=== PATIENT | female | born 1990 | race Caucasian/White ===

== ENCOUNTER 2017-02-02 17:27 | Emergency (ER) | payer OTHER ==
[~2017-02-02] VITALS: Ht 165.1 cm; Wt 46.5 kg
[~2017-02-02 17:27] MED LIST: BACT800T5 PO; CEPH500C3 PO; FLUC200T63 PO; IBUP800T23 PO; PROM25TA5 PO; TRAZ150T75 PO; VALI10TA PO
[2017-02-02 17:39] VITALS: BP 138/89; PULSE 98; RESP 22; TEMP 98; O2SAT 98
--- NOTE | 2017-02-02 17:50 | PD ---
HPI Chief Complaint: Psychiatric Symptoms Time Seen by Provider: 17:40 Travel History International Travel<30 days: No Contact w/Intl Traveler<30days: No Traveled to known affect area: No History of Present Illness HPI The patient was seen and examined in the presence of the nurse. This patient presents under police Pratt act. According to the Pratt act form she had made some suicidal statements. Patient downplays that and at this time says she is not feeling suicidal. She denies alcohol or drug use today. She reports history of lupus and bipolar. She did not take her bipolar meds today but reports she took them yesterday. Severity is moderate. No alleviating factors. Duration one week PFSH Past Medical History Arthritis: No Anxiety: Yes Cancer: No Cardiovascular Problems: No Cerebrovascular Accident: No Diminished Hearing: No Endocrine: No Genitourinary: No Immune Disorder: No Musculoskeletal: No Neurologic: No Psychiatric: Yes Reproductive: No Respiratory: No Immunizations Current: Yes Migraines: Yes Seizures: No ?: Not LMP: 02/02/17 Past Surgical History Abdominal Surgery: No Section: Yes (X2) Ear Surgery: No Eye Surgery: No Genitourinary Surgery: No Gynecologic Surgery: Yes () Oral Surgery: Yes (WISDOM TEETH) Thoracic Surgery: No Other Surgery: Yes Social History Alcohol Use: No Tobacco Use: Yes Substance Use: Yes ([facility]) Allergies-Medications (Allergen,Severity, Reaction): Coded Allergies: Ultram (Verified Allergy, Severe, Hives, 02/02/17) TACHYCARDIA *MDRO Multi-Drug Resistant Organism (Verified Allergy, Unknown, 01/31/16) 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; MRSA (lip)- 2012 Reported Meds & Prescriptions Reported Meds & Active Scripts Active Reported Trazodone (Trazodone HCl) 150 Mg Tab 150 Mg PO HS Prednisone 20 Mg Tab 20 Mg PO DAILY Cyproheptadine (Cyproheptadine HCl) 4 Mg Tab 4 Mg PO BID Meloxicam 7.5 Mg Tab 7.5 Mg PO BID Lamotrigine 100 Mg Tab 100 Mg PO BID Duloxetine DR (Duloxetine HCl) 60 Mg Capdr 60 Mg PO DAILY Review of Systems General / Constitutional: No: Fever Eyes: No: Visual changes HENT: No: Headaches Cardiovascular: No: Chest Pain or Discomfort Respiratory: No: Shortness of Breath Gastrointestinal: No: Abdominal Pain Genitourinary: No: Dysuria Musculoskeletal: No: Pain Skin: No Rash Neurologic: No: Weakness Psychiatric: Positive: Depression, Suicidal Ideations, Disorder of Thought, Mood Disorder Endocrine: No: Polydipsia Hematologic/Lymphatic: No: Easy Bruising Physical Exam Narrative GENERAL: Well-nourished, well-developed patient in no apparent distress. SKIN: Focused skin assessment reveals no rash and nodules. Skin is Warm and dry. HEAD: Atraumatic. Normocephalic. EYES: Pupils equal and round. No scleral icterus. No injection or drainage. ENT: No nasal bleeding or discharge. Mucous membranes pink and moist. NECK: Trachea midline. No JVD. CARDIOVASCULAR: Regular rate and rhythm. No murmur appreciated. RESPIRATORY: No accessory muscle use. Clear to auscultation. Breath sounds equal bilaterally. GASTROINTESTINAL: Abdomen soft, non-tender, nondistended. Hepatic and splenic margins not palpable. MUSCULOSKELETAL: No obvious deformities. No clubbing. No cyanosis. No edema. NEUROLOGICAL: Awake and alert. No obvious cranial nerve deficits. Motor grossly within normal limits. Normal speech. PSYCHIATRIC: Depressed mood and flat affect; insight and judgment reduced . Data Data Last Documented VS Vital Signs Date Time Temp Pulse Resp B/P Pulse Ox O2 Delivery O2 Flow Rate FiO2 02/02/17 17:39 98.0 98 22 138/89 98 Orders Complete Blood Count With Diff (02/02/17 17:48) Basic Metabolic Panel (Bmp) (02/02/17 17:48) Ed Urine Pregnancytest Poc (02/02/17 17:48) Iv Access Insert/Monitor (02/02/17 17:48) Psych Screen (02/02/17 17:48) Drug Screen, Random Urine (02/02/17 17:48) Alcohol (Ethanol) (02/02/17 17:48) Ketorolac Inj (Toradol Inj) (02/02/17 18:45) MDM Medical Decision Making Medical Screen Exam Complete: Yes Emergency Medical Condition: Yes Medical Record Reviewed: Yes Differential Diagnosis Suicidal ideation, depression, adjustment disorder Narrative Course I have reviewed the patient's electronic medical record. IV placed I gave her 30 mg IV Toradol I ordered a medical clearance workup to include Gen. lab counts and alcohol and tox screen I don't expect any of these would change management expert. They will be reviewed prior to her being deemed medically clear. Disposition will be per psychiatry after screening. Diagnosis Primary Impression: Suicidal ideation Additional Impression: Bipolar 1 disorder Jameel Cevallos MD Feb 02, 2017 17:50
[2017-02-02] MEDS ORDERED: LAMO100T PO (17:54)
[2017-02-02] MEDS ORDERED: TRAZ150T75 PO (17:54)
[2017-02-02] MEDS ORDERED: MELO7.5T4 PO (17:54)
[2017-02-02] MEDS ORDERED: PRED20 PO (17:54)
[2017-02-02] MEDS ORDERED: DULO1CAP3 PO (17:54)
[2017-02-02] MEDS ORDERED: CYPR4TAB PO (17:54)
[2017-02-02] MEDS ORDERED: KETOROLAC TROMETHAMINE 30 MG/ML (IVP) VIAL IV PUSH ONE (18:45)
[2017-02-02 18:53] LABS: AMPHETAMINE, URINE NEG (NEG); BARBITURATES, URINE NEG (NEG); COCAINE, URINE NEG (NEG)
[2017-02-02 19:06] LABS: AUTOMATED NEUTROPHIL # 8.3 TH/MM3 (1.8-7.7); BASOPHIL % 0.4 % (0.0-2.0); EOSINOPHIL # 0.1 TH/MM3 (0-0.4); HEMATOCRIT 34.5 % (35.0-46.0); HEMO FLAGS DIFF FINAL; LYMPH % 25.1 % (9.0-44.0); MEAN CELL VOLUME 86.8 FL (80.0-100.0); MEAN CORPUSCULAR HEMOGLOBIN 29.6 PG (27.0-34.0); MONO % 4.5 % (0.0-8.0); PLATELET COUNT 342 TH/MM3 (150-450); RED BLOOD COUNT 3.97 MIL/MM3 (4.00-5.30); RED CELL DISTRIBUTION WIDTH 13.7 % (11.6-17.2)
[2017-02-02 19:07] LABS: ANION GAP 4 MEQ/L (5-15); BICARBONATE 29.3 MEQ/L (21.0-32.0); BLOOD UREA NITROGEN 16 MG/DL (7-18); CHLORIDE 109 MEQ/L (98-107); GLOMERULAR FILTRATION RATE 72 ML/MIN (>89); POTASSIUM 3.7 MEQ/L (3.5-5.1); SODIUM (NA) 142 MEQ/L (136-145)
[2017-02-02] MEDS ORDERED: predniSONE 20 MG TAB PO ONE (20:15)
[2017-02-02] MEDS ORDERED: traZODone HCL 100 MG TAB PO ONE (20:15)
[2017-02-02 22:21] VITALS: BP 102/58; PULSE 76; RESP 16; O2SAT 99
== END 2017-02-03 01:23 ==
LOC: NEPC 17:27 → NEPJ 02-03 01:23
DX: F31.9 Bipolar disorder, unspecified (principal); R45.851 Suicidal ideations; M32.9 Systemic lupus erythematosus, unspecified; Z72.0 Tobacco use
CPT/HCPCS: 80048; 80307; 84703; 85025; 96374; 99285; J1885; J7512

== ENCOUNTER 2017-02-17 16:28 | Emergency (ER) | payer OTHER ==
[~2017-02-17] VITALS: Ht 162.6 cm; Wt 46.0 kg
[~2017-02-17 16:28] MED LIST changes: -BACT800T5 PO; -CEPH500C3 PO; +CYPR4TAB PO; +DULO1CAP3 PO; -FLUC200T63 PO; -IBUP800T23 PO; +LAMO100T PO; +MELO7.5T4 PO; +PRED20 PO; -PROM25TA5 PO; -VALI10TA PO
[2017-02-17 16:46] VITALS: BP 129/86; PULSE 110; RESP 17; TEMP 98.7; O2SAT 100
[2017-02-17] MEDS ORDERED: XANA1TAB2 PO (18:23)
[2017-02-17] MEDS ORDERED: HYDR-3366 PO (18:39)
--- NOTE | 2017-02-17 18:39 | PD ---
HPI Chief Complaint: Pain: Acute or Chronic Time Seen by Provider: 17:57 Travel History International Travel<30 days: No Contact w/Intl Traveler<30days: No Traveled to known affect area: No History of Present Illness HPI This 26-year-old female is complaining of jaw pain and knee pain. She says that she was recently diagnosed with lupus on the basis of blood tests. She's been having the pain for some time and has been told she has no cartilage in the knee. She gets intermittent pain in the jaw. She was started on prednisone for the lupus but she says that it made her crazy and she got Pratt acted says she's been told she cannot take it. She does have a history of bipolar disorder. She she is having pain in both of her legs and the jaws for several days. She is not aware of fever PFSH Past Medical History Arthritis: No Autoimmune Disease: Yes (lupus) Bipolar Disorder: Yes Anxiety: Yes Depression: Yes Cancer: No Cardiovascular Problems: No Cerebrovascular Accident: No Diminished Hearing: No Endocrine: No Genitourinary: No Immune Disorder: No Medical other: Yes (chronic joint pain) Musculoskeletal: No Neurologic: No Psychiatric: Yes Reproductive: No Respiratory: No Immunizations Current: No Migraines: Yes Seizures: No Tetanus Vaccination: < 5 Years Influenza Vaccination: No ?: Not LMP: 01/28/2017 Past Surgical History Abdominal Surgery: No Section: Yes (X2) Ear Surgery: No Eye Surgery: No Genitourinary Surgery: No Gynecologic Surgery: Yes () Oral Surgery: Yes (WISDOM TEETH) Thoracic Surgery: No Other Surgery: Yes Social History Alcohol Use: No Tobacco Use: No (quiet at present time-hx of cigs) Substance Use: Yes (hx [facility]) Allergies-Medications (Allergen,Severity, Reaction): Coded Allergies: Ultram (Verified Allergy, Severe, Hives, 02/17/17) TACHYCARDIA *MDRO Multi-Drug Resistant Organism (Verified Allergy, Unknown, 02/17/17) 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; MRSA (lip)- 2012 Reported Meds & Prescriptions Reported Meds & Active Scripts Active Reported Xanax (Alprazolam) 1 Mg Tab 1-2 Mg PO TID Trazodone (Trazodone HCl) 150 Mg Tab 300 Mg PO HS Meloxicam 7.5 Mg Tab 7.5 Mg PO BID Lamotrigine 100 Mg Tab 100 Mg PO BID Duloxetine DR (Duloxetine HCl) 60 Mg Capdr 60 Mg PO DAILY Review of Systems General / Constitutional: No: Fever, Chills Eyes: No: Diploplia, Blurred Vision HENT: Positive: Dental Difficulties, No: Headaches Cardiovascular: No: Chest Pain or Discomfort Respiratory: No: Cough, Shortness of Breath Gastrointestinal: No: Nausea, Vomiting Genitourinary: No: Urgency, Frequency Musculoskeletal: Positive: Myalgias, Arthralgias, Pain Skin: No Rash, No Itching Neurologic: Positive: Weakness Physical Exam Narrative GENERAL: Well-developed female SKIN: Focused skin assessment warm/dry. HEAD: Atraumatic. Normocephalic. EYES: Pupils equal and round. No scleral icterus. No injection or drainage. ENT: No nasal bleeding or discharge. Mucous membranes pink and moist. She has some mild tenderness in both tympanic membranes reveal her joints and some tenderness under the chin NECK: Trachea midline. No JVD. CARDIOVASCULAR: Regular rate and rhythm. No murmur appreciated. RESPIRATORY: No accessory muscle use. Clear to auscultation. Breath sounds equal bilaterally. GASTROINTESTINAL: Abdomen soft, non-tender, nondistended. Hepatic and splenic margins not palpable. MUSCULOSKELETAL: No obvious deformities. No clubbing. No cyanosis. No edema. There is some pain to palpation of the knee. It is not red or hot NEUROLOGICAL: Awake and alert. No obvious cranial nerve deficits. Motor grossly within normal limits. Normal speech. PSYCHIATRIC: Appropriate mood and affect; insight and judgment normal. Data Data Last Documented VS Vital Signs Date Time Temp Pulse Resp B/P Pulse Ox O2 Delivery O2 Flow Rate FiO2 02/17/17 18:20 16 02/17/17 16:46 98.7 110 129/86 100 MDM Medical Decision Making Medical Screen Exam Complete: Yes Emergency Medical Condition: Yes Medical Record Reviewed: Yes Differential Diagnosis Differential includes lupus, arthritis, Narrative Course Patient apparently has lupus. She was on prednisone previously and has been told that she cannot take it. She is making arrangements to see a life underwriter through her primary care provider. I will prescribe some [place] which has helped with pain in the past that have stressed the need for her to see a life underwriter Diagnosis Primary Impression: Lupus (systemic lupus erythematosus) Qualified Code: M32.9 - Systemic lupus erythematosus, unspecified SLE type, unspecified organ involvement status Scripts Hydrocodone-Acetaminophen ([place])10-325 Mg Tab1 Tab PO Q4H PRN (PAIN) #30 TAB Ref 0 Prov:Trevor Najera MD 02/17/17 Disposition: 01 DISCHARGE HOME Condition: Stable Trevor Najera MD Feb 17, 2017 18:39
--- NOTE | 2017-02-18 23:02 | EKG ---
Date Performed: 02/17/2017 Time Performed: 16:54:18 PTAGE: 26 years EKG: Sinus rhythm Left axis deviation Borderline ECG PREVIOUS TRACING : 04/12/2015 12.59 Compared to prior tracing no significant change DOCTOR: Bala Cardona Interpretating Date/Time 02/18/2017 23:00:31
== END 2017-02-17 18:51 | disposition home or self-care (01) ==
LOC: PHED 16:28
DX: M32.9 Systemic lupus erythematosus, unspecified (principal); F31.9 Bipolar disorder, unspecified; F41.8 Other specified anxiety disorders
CPT/HCPCS: 93005; 99283